=== PATIENT | male | born 1990 | race Caucasian/White ===

== ENCOUNTER 2020-07-01 21:25 | Emergency (ER) | payer OTHER ==
[~2020-07-01] VITALS: Ht 161.3 cm; Wt 68.6 kg
[2020-07-01] MEDS ORDERED: IBUPROFEN 400 MG TABLET PO ONE (22:30)
[2020-07-01 23:15] VITALS: BP 139/72
== END 2020-07-02 00:10 | disposition home or self-care (01) ==
LOC: EMS 21:44 → EDBD 21:44 → EMS 07-02 00:10
DX: S82.54XA Nondisplaced fracture of medial malleolus of right tibia, initial encounter for closed fracture (principal); W17.89XA Other fall from one level to another, initial encounter; Y93.89 Activity, other specified; Y92.89 Other specified places as the place of occurrence of the external cause; Y99.8 Other external cause status
CPT/HCPCS: 29515